=== PATIENT | female | born 1980 | race Caucasian/White ===

== ENCOUNTER 2024-05-24 07:35 | Day surgery (SDC) | payer OTHER ==
[~2024-05-24] VITALS: Ht 160 cm; Wt 86.2 kg
[2024-05-24] MEDS ORDERED: SODIUM CHLORIDE 0.9% 10 ML SYR ONE (07:37)
[2024-05-24] MEDS ORDERED: SODIUM CHLORIDE 20 ML/VIAL SDV ONE (07:38)
[2024-05-24] MEDS ORDERED: LIDOCAINE HCL 1% (10MG/ML) 100 MG/10 ML MDV ONE (07:40)
[2024-05-24] MEDS ORDERED: DEXAMETHASONE SODIUM PHOSPHATE PF 10 MG/ML SDV ONE (07:40)
[2024-05-24] MEDS ORDERED: Iopamidol 61% 5 ML SYR IV ONE (07:42)
[2024-05-24] MEDS ORDERED: VENTOLIN HFA108 MCG PO (07:59)
[2024-05-24] MEDS ORDERED: DORZOLAMIDE HCL2 % OU (08:00)
[2024-05-24] MEDS ORDERED: NEURONTIN100 MG PO (08:01)
[2024-05-24] MEDS ORDERED: VIMPAT150 MG PO (08:02)
[2024-05-24] MEDS ORDERED: HYDROCHLOROT25 MG PO (08:02)
[2024-05-24] MEDS ORDERED: LATANOPROST0.005 % OU (08:03)
[2024-05-24] MEDS ORDERED: MONTELUKAST SOD10 MG PO (08:04)
[2024-05-24] MEDS ORDERED: ZOLOFT25 MG PO (08:05)
[2024-05-24] MEDS ORDERED: PREDNISONE20 MG PO (08:05)
[2024-05-24 10:01] VITALS: BP 119/79
== END 2024-05-24 09:38 | disposition home or self-care (01) ==
LOC: ORM 07:35
PROVIDERS: ATTEND Student in an Organized Health Care Education/Training Program
DX: M51.26 Other intervertebral disc displacement, lumbar region (principal); M51.36 Other intervertebral disc degeneration, lumbar region; M54.16 Radiculopathy, lumbar region; G89.4 Chronic pain syndrome
CPT/HCPCS: J1100; Q9967

== ENCOUNTER 2024-11-01 07:46 | Day surgery (SDC) | payer OTHER ==
[~2024-11-01] VITALS: Ht 160 cm; Wt 97.1 kg
[~2024-11-01 07:46] MED LIST: DORZOLAMIDE HCL2 % OU; HYDROCHLOROT25 MG PO; LATANOPROST0.005 % OU; MONTELUKAST SOD10 MG PO; NEURONTIN100 MG PO; PREDNISONE20 MG PO; VENTOLIN HFA108 MCG PO; VIMPAT150 MG PO; ZOLOFT25 MG PO
[2024-11-01] MEDS ORDERED: SODIUM CHLORIDE 0.9% 10 ML SYR ONE ×2 (07:50→08:33)
[2024-11-01] MEDS ORDERED: KEPPRA250 M1 PO (08:13)
[2024-11-01] MEDS ORDERED: MIDAZOLAM HCL 2 MG/2 ML VIAL ONE (08:22)
[2024-11-01] MEDS ORDERED: BUPIVACAINE HCL PF 0.5 % 50 MG/10 ML SDV ONE (09:24)
[2024-11-01] MEDS ORDERED: LIDOCAINE HCL 1% (10MG/ML) 100 MG/10 ML MDV ONE (09:24)
[2024-11-01 10:06] VITALS: BP 114/64
== END 2024-11-01 12:25 | disposition home or self-care (01) ==
LOC: ORM 07:46
PROVIDERS: ATTEND Student in an Organized Health Care Education/Training Program
DX: G89.4 Chronic pain syndrome (principal); M47.816 Spondylosis without myelopathy or radiculopathy, lumbar region

== ENCOUNTER 2025-01-03 07:42 | Day surgery (SDC) | payer OTHER ==
[~2025-01-03] VITALS: Ht 160 cm; Wt 99.8 kg
[~2025-01-03 07:42] MED LIST changes: +KEPPRA250 M1 PO
[2025-01-03] MEDS ORDERED: SODIUM CHLORIDE 0.9% 10 ML SYR ONE (07:48)
[2025-01-03] MEDS ORDERED: BUPIVACAINE HCL PF 0.5 % 50 MG/10 ML SDV ONE (08:51)
[2025-01-03] MEDS ORDERED: LIDOCAINE HCL 1% (10MG/ML) 100 MG/10 ML MDV ONE (08:51)
[2025-01-03 09:11] VITALS: BP 141/92
== END 2025-01-03 09:07 | disposition home or self-care (01) ==
LOC: ORM 07:42
PROVIDERS: ATTEND Student in an Organized Health Care Education/Training Program
DX: M47.816 Spondylosis without myelopathy or radiculopathy, lumbar region (principal); G89.4 Chronic pain syndrome; M54.16 Radiculopathy, lumbar region; M54.9 Dorsalgia, unspecified